=== PATIENT | male | born 1945 | race Caucasian/White ===

== ENCOUNTER → 2020-12-31 | Outpatient (CLI) | payer MEDICARE ==
--- NOTE | 2020-12-31 18:07 | RAD ---
Exam: US DPLX ARTR EXTREM LOWER BILAT History: Reason: Abnormal LILIA screening at outside facility; Leg Pain; HTN / Spl. Instructions: / Hi story: Comparison: None. Technique: Grayscale, color, and spectral Doppler ultrasound images of the lower extremity arteries. Findings: Peak systolic velocities (cm/s) and waveforms in the lower extremities: Right: Common femoral artery: 137, triphasic Profunda femoris artery: 236, monophasic Proximal superficial femoral artery: Occluded Mid superficial femoral artery: Occluded, Distal superficial femoral artery: Occluded with adjacent collateral vessel. Popliteal artery: 42, monophasic Posterior tibial artery: 26 proximally, 27 distally, monophasic, Peroneal artery: 39, monophasic Anterior tibial artery: 23, monophasic Dorsalis pedis artery: 29, monophasic Left: Common femoral artery: 170, monophasic Profunda femoris artery: 165, monophasic Proximal superficial femoral artery: Occluded, with adjacent collateral Mid superficial femoral artery: 119, monophasic Distal superficial femoral artery: 108, monophasic, Popliteal artery: 42, monophasic Posterior tibial artery: 29 proximally, 19 distally, monophasic Peroneal artery: 44, monophasic Anterior tibial artery: 41, monophasic Dorsalis pedis artery: 46, monophasic Impression: 1. 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 There is reconstitution of flow at the level of the right popliteal artery and left mid superficial femoral artery but diminished, monophasic waveforms distally. 2. Elevated velocities in the bilateral common femoral and profunda femoris arteries, greatest at the right profundus femoris artery suggesting stenosis. 3. Recommend vascular surgery consultation. Electronically signed by: Hiral Quiroz MD (12/31/2020 6:04 PM) [id number]
== END ==
LOC: US 11:02
PROVIDERS: ATTEND Family Medicine
DX: I70.203 Unspecified atherosclerosis of native arteries of extremities, bilateral legs (principal)
CPT/HCPCS: 93925

== ENCOUNTER 2021-03-25 07:07 | Day surgery (SDC) | payer MEDICARE ==
[~2021-03-25] VITALS: Ht 170.2 cm; Wt 85.0 kg
[~2021-03-25 07:07] MED LIST: ASPI-630 PO; ATOR40TA59 PO; CARV25TA2 PO; HYDROmorphone 2 MG/ML VIAL IVP PRN; LEVO25TA4 PO; LISI20TA18 PO; MORPHINE SULFATE 2 MG/ML INJ. IVP PRN; OMEG1CAP27 PO; PROCHLORPERAZINE 10 MG/2 ML VIAL. IVP PRN; fentaNYL PF VIAL 100 MCG/2 ML VIAL IVP PRN
[2021-03-25 07:45] VITALS: BP 141/71
[2021-03-25] MEDS: IV RINGERS,LACTATED 1000ML 1,000 ML IV SCH ×2 (08:06→15:05)
[2021-03-25] MEDS ORDERED: ROCURONIUM 50 MG/5 ML VIAL. ONE (08:50)
[2021-03-25] MEDS ORDERED: fentaNYL PF VIAL 100 MCG/2 ML VIAL ONE ×2 (08:50→10:58)
[2021-03-25] MEDS ORDERED: BUPIVACAINE-EPI 0.5%-1:200000 MPF 30 ML VIAL. ONE (08:53)
[2021-03-25] MEDS ORDERED: SEVOFLURANE 61 TO 120 MINUTES. IH ONE (09:50)
[2021-03-25] MEDS ORDERED: LIDOCAINE 2% PF 5 ML VIAL. ONE (09:50)
[2021-03-25] MEDS ORDERED: PROPOFOL 10 MG/ML (20ML) VIAL. IV ONE (09:50)
[2021-03-25] MEDS ORDERED: DEXAMETHASONE SOD PHOS 4 MG/ML VIAL ONE (09:50)
[2021-03-25] MEDS ORDERED: ONDANSETRON PF 4 MG/2 ML VIAL. ONE (09:50)
[2021-03-25] MEDS ORDERED: PHENYLEPHRINE in 0.9% NACL PF 1 MG/10 ML SYRINGE. IV ONE (09:51)
[2021-03-25] MEDS ORDERED: KETOROLAC 30 MG/ML VIAL. ONE (10:31)
[2021-03-25] MEDS ORDERED: NEOSTIGMINE METHYLSULFATE 5 MG/5 ML SYRINGE. ONE (10:32)
[2021-03-25] MEDS ORDERED: GLYCOPYRROLATE 1 MG/5 ML VIAL. ONE ×2 (10:32→11:14)
--- NOTE | 2021-03-25 10:53 | PDOC4 ---
Operative Note Operative Note Operative Note: Preoperative Diagnosis: Right inguinal hernia Postoperative Diagnosis: Same Procedure: Right inguinal hernia repair with mesh Surgeon: Donaldo Granular Operator: PATY Harrison Anesthesia: General EBL: 10 mL Specimen: None Drains: None Complications: None Indication: The patient is a 75-year-old male who is referred with a right inguinal hernia. He is interested in operative repair. The risks of surgery were discussed which include bleeding, infection, recurrence, pain, anesthetic risk, potential need for additional surgery procedure. He understands and would like to proceed. Description: The patient was taken the operating room and placed supine on the operating table. General anesthesia was performed. The right groin was shaved and prepped with ChloraPrep and draped with sterile towels, sheets, and an Ioban. An incision was made in the skin lines with a scalpel. Cautery dissection was carried down to the external oblique aponeurosis. The aponeurosis was opened down to the external ring. The cord structures were identified and mobilized from the surrounding tissues and encircled with a Carlos drain. The patient had a moderate sized direct hernia defect present. The edges of the hernia defect were clarified. The extruded preperitoneal fat was reduced. The defect was filled with a large Phasix mesh plug. The plug was sutured into position with 2-0 Vicryl. The entire inguinal floor was then reinforced with a Prolene keyhole mesh patch. The patch was also sutured into position with 2-0 Vicryl. A slit was made to accommodate the cord structures. The external oblique was closed over the mesh with 2-0 Vicryl. The subcutaneous tissue was approximated with 3-0 Vicryl. The skin was closed with 4-0 Monocryl and infiltrated with half percent Marcaine with epinephrine. Steri-Strips and a sterile dressing were applied. The patient tolerated the procedure well and was sent to the recovery room in stable condition. At the end of the case all counts were correct LUCERO DOMÍNGUEZ MD Mar 25, 2021 10:53
[2021-03-25] MEDS ORDERED: HYDR-2759 PO (10:56)
--- NOTE | 2021-03-25 10:57 | DISCH ---
DISCHARGE INSTRUCTIONS Condition on Discharge Condition on Discharge: Stable Activity After Discharge Activity Instructions for Disc: Other, see below (no lifting over 20 lbs X 4 weeks) Driving Instructions after Dis: Other, see below (no driving while taking pain meds) Diet after Discharge Diet after Discharge: Regular Wound Incision Care Wound/Incision Care: Other, see below (keep dressing clean and dry X 72 hours, may then remove and shower) Follow-Up Follow up with: Dr Domínguez in office in 2 weeks, call for appointment [phone] LUCERO DOMÍNGUEZ MD Mar 25, 2021 10:57
[2021-03-25] MEDS: fentaNYL PF VIAL 100 MCG/2 ML VIAL IVP PRN ×2 (11:02→11:18)
[2021-03-25] MEDS ORDERED: MORPHINE SULFATE 2 MG/ML INJ. ONE (11:37)
[2021-03-25] MEDS ORDERED: HYDROcodone/APAP 5/325MG 1 TAB TABLET PO ONE ×2 (11:45→16:00)
[2021-03-25 11:49] VITALS: BP 154/90
[2021-03-25] MEDS ORDERED: ONDANSETRON PF 4 MG/2 ML VIAL. IVP PRN (14:45)
[2021-03-25] MEDS ORDERED: HYDROcodone/APAP 5/325MG 1 TAB TABLET PO PRN ×2 (14:45)
[2021-03-25] MEDS ORDERED: HYDROmorphone 2 MG/ML VIAL IV PRN (14:45)
[2021-03-25] MEDS ORDERED: NALOXONE 0.4 MG/ML VIAL. IV PRN (14:45)
[2021-03-25] MEDS ORDERED: 0.9 % SODIUM CHLORIDE 10 ML DISP.SYRIN. IV PRN (14:45)
[2021-03-25] MEDS ORDERED: IV NORMAL SALINE 1000ML BAG 1,000 ML IV SCH (14:45)
[2021-03-25] MEDS ORDERED: IV 1/2 NORMAL SALINE 1,000 ML IV SCH (15:00)
[2021-03-25] MEDS ORDERED: CARVEDILOL 12.5 MG TABLET. PO SCH (17:00)
[2021-03-25] MEDS ORDERED: ATORVASTATIN CALCIUM 40 MG TABLET. PO SCH (21:00)
[2021-03-26] MEDS ORDERED: LEVOTHYROXINE 25 MCG TABLET. PO SCH (07:30)
[2021-03-26] MEDS ORDERED: LISINOPRIL 20 MG TABLET PO SCH (09:00)
[2021-03-26] MEDS ORDERED: ASPIRIN CHEWABLE 81 MG TABLET. PO SCH (09:00)
== END 2021-03-25 16:25 | disposition home or self-care (01) ==
LOC: SURG 07:07
PROVIDERS: ATTEND Surgery
DX: K40.90 Unilateral inguinal hernia, without obstruction or gangrene, not specified as recurrent (principal); I25.10 Atherosclerotic heart disease of native coronary artery without angina pectoris; I10 Essential (primary) hypertension; E78.00 Pure hypercholesterolemia, unspecified; E03.9 Hypothyroidism, unspecified; Z79.82 Long term (current) use of aspirin; Z79.899 Other long term (current) drug therapy; Z87.891 Personal history of nicotine dependence; Z98.890 Other specified postprocedural states; Z72.89 Other problems related to lifestyle
CPT/HCPCS: 49505; A4364; A4930; C1781; J0690; J1100; J1885; J2270; J2370; J2405; J2704; J2710; J3010; J3490; A4223; A4452